=== PATIENT | male | born 1990 | race African-American/Black ===

== ENCOUNTER 2025-01-14 14:25 | Emergency (ER) | payer OTHER, SELFPAY ==
[2025-01-14 14:32] VITALS: BP 123/65
--- NOTE | 2025-01-14 14:43 | ED.MUSCINJ ---
HPI-Injury
General
Chief Complaint: Musculo-Skeletal Complaint
Source: patient
Exam Limitations: none
Time Seen by Provider: 01/14/25 14:41
Nursing documentation reviewed up to this point in time: agreed with
History of Present Illness-Injury
Initial Injury comments:
34 yo male from [facility] states he was doing pushups at 10 a.m. and leaned extra hard on right thumb and it gave out. Now base of thumb is swollen and sore.
Past History
Past History
ED Past Medical History: Psychiatric
ED Past Surgical History: Other (NA)
Social History
Tobacco: Non-smoker
Alcohol: None
Living: [facility]
Review of Systems
Review of Systems
Allergies reviewed?: Yes
All Other Systems: ROS reviewed and negative except as documented in HPI and ROS
Musculoskeletal: Reports other (pain base right thumb)
Musculoskeletal Injury Exam
Musculoskeletal Injury Exam
base right thumb:
Pain with Movement?: Moderate
Tender to palpation?: Moderate
Soft tissue swelling?: Moderate
External deformity and angulation?: None
Strain- Sprain- Tear (Connective tissue injury)?: Moderate
Joint instability?: No
Malalignment/deformity?: No
Range of motion: Limited
Distal skin color and temperature: normal-warm & good color
Capillary Refill: normal
Normal distal neurovascular exam?: Yes
Phy Exam
Physical Exam
Physical Exam:
PHYSICAL EXAMINATION:
General: no apparent distress, not acutely ill
Neuro: alert and oriented.
Psychiatric: well kept. interactive and cooperative
Musculoskeletal: Moves with ease
Skin: Warm, normal
Injury Course
Orders/Labs/Results
Orders:
Orders
01/14/25 14:34
CR Finger(s)/thumb Min 2 Vw Rt Urgent
Comment:
Reason For Exam: right thumb injury
Indicate Which Finger:: Thumb
01/14/25 15:18
Trevor Wrap Right-Treatment ONCE
MDM/Problems Addressed
Differential Diagnosis Includes:
Sprain, dislocation, fracture
MDM/Problems Addressed:
34 yo male from [facility] states he was doing pushups at 10 a.m. and leaned extra hard on right thumb and it gave out. Now base of thumb is swollen and sore.
3:15 p.m.
X-ray right thumb read initially by this examiner, no dislocation or fracture noted.
Trevor wrap applied
Pt discharged back to [facility]
01/15/25: 8:45 a.m.
Official Radiology read after discharge: IMPRESSION: Possible malalignment of the first MCP joint. Comparison to opposite side suggested if indicated clinically.
Left message on [facility] answering service to call back
*Critical Care Note
Total Time (30-74mins, 75-104mins- exclusive of procedures): Not Applicable
ED Attending Note
-
Portions of this chart may have been created with voice recognition software.� Occasional wrong word or��sound alike� substitutions may have occurred due to the inherent limitations of voice recognition software.
Discharge Plan
Departure
Patient Disposition: Snf
Date of Disposition: 01/14/25
Time of Disposition: 15:21
Condition: Good
Discharge Problem:
Sprain of right thumb
Instructions: Sprained Thumb
Referrals:
[facility],Facility [Family Provider] -
August Eller MD [Active] - As needed
Activity Restrictions/Additional Instructions:
As we discussed, there is nothing broken or out of place on your x-ray. You have sprained your thumb.
Wear the Trevor wrap as needed for comfort and support.
See the orthopedic doctor in 2 weeks if it is not significantly better by then.
Interventions
Interventions:
*Risk Screen - Suicide Last Done: 01/14/25 14:33
*General Assessment Last Done: 01/14/25 14:33
*Neglect/Abuse Screening Last Done: 01/14/25 14:33
*ED- Fall Risk Assessment Last Done: 01/14/25 14:33
*ED COVID-19 Vaccine History Last Done: 01/14/25 14:33
*Nursing Disposition Last Done: 01/14/25 15:37
ED-Musculoskeletal Assessment Last Done: 01/14/25 14:33
Discharge Date and Time
Discharge Date/Time: 01/14/25 15:38
Print Language: LITHUANIAN
== END 2025-01-14 15:38 ==
LOC: EMR 14:25
PROVIDERS: EMERGENCY PHYSICIAN Emergency Medicine
DX: S63.601A Unspecified sprain of right thumb, initial encounter (principal); X50.1XXA Overexertion from prolonged static or awkward postures, initial encounter; Y93.B2 Activity, push-ups, pull-ups, sit-ups; Y92.149 Unspecified place in prison as the place of occurrence of the external cause
CPT/HCPCS: 99283; 73140